=== PATIENT | female | born 1985 | race American Indian/Alaskan Native ===

== ENCOUNTER 2017-02-09 19:07 | Emergency (ER) | payer OTHER ==
[2017-02-09 19:41] VITALS: RESP 16; TEMP 98
--- NOTE | 2017-02-09 19:44 | C.PDOC ---
History Of Present Illness 31 year old female complains of low back pain for 2 months. Pain has gradually been worsening is localized to right lower back and occasionally radiates down the entire leg. She has been seen by PMD and pain management with normal xrays. Today patient had an MRI and is awaiting the results. She states she recently started taking Ultram for the pain but today pain still persistent. She also takes Flexeril and gabapentin. She admits to heavy lifting at work but has been on light duty for the past 2 weeks. Denies any dysuria, numbness, weakness, incontinence. Time Seen by Provider: 02/09/17 19:42 Chief Complaint (Nursing): Lower Extremity Problem/Injury History Per: Patient History/Exam Limitations: no limitations Onset/Duration Of Symptoms: Days (4) Current Symptoms Are (Timing): Still Present Quality Of Discomfort: "Pain" Previous Symptoms: Back Pain Associated Symptoms: denies: Incontinence, New Weakness, New Numbness Additional History Per: Patient Past Medical History Reviewed: Historical Data, Nursing Documentation, Vital Signs Vital Signs: Last Vital Signs Temp 98 F 02/09/17 19:38 Pulse 77 02/09/17 20:55 Resp 16 02/09/17 20:55 BP 134/84 02/09/17 20:55 Pulse Ox 99 02/09/17 21:32 - Medical History PMH: No Chronic Diseases Surgical History: No Surg Hx Family History: States: Unknown Family Hx - Social History Hx Alcohol Use: No Hx Substance Use: No - Immunization History Hx Tetanus Toxoid Vaccination: No Hx Influenza Vaccination: No Hx Pneumococcal Vaccination: No Review Of Systems Genitourinary: Negative for: Dysuria, Incontinence Musculoskeletal: Positive for: Back Pain (right lower ), Leg Pain Neurological: Negative for: Weakness, Numbness Physical Exam - Physical Exam Appears: Non-toxic, Other (uncomfortable ) Skin: Normal Color, Warm, Dry Head: Atraumatic, Normacephalic Eye(s): bilateral: Normal Inspection Oral Mucosa: Moist Neck: Supple Chest: Symmetrical Cardiovascular: Rhythm Regular, No Murmur Respiratory: Normal Breath Sounds, No Wheezing Back: Normal Inspection (no rash, swelling or bulging), No Vertebral Tenderness , Paraspinal Tenderness (lumbar), Straight Leg Raising (+45 degrees) Extremity: Normal ROM, No Tenderness, No Pedal Edema, Capillary Refill (less than 2 seconds ), No Deformity, No Swelling Neurological/Psych: Oriented x3, Normal Speech Gait: Steady ED Course And Treatment O2 Sat by Pulse Oximetry: 99 (on RA) Pulse Ox Interpretation: Normal Medical Decision Making Medical Decision Making: Impression: Sciatica NJRx Reviewed: 01/26/17 Taramadol 50mg #60 12/20/16 Diazepam 5 mg #5 Plan: * Toradol * Valium * Lidoderm Re-Eval: On reassessment, patient is resting comfortably, showing no signs of distress, and reports an improvement in her symptoms. Patient is ambulatory in the ED without distress and is stable for discharge. Patient is advised to f/u with PMD within 1-2 days for further evaluation. Disposition Counseled Patient/Family Regarding: Diagnosis, Need For Followup, Rx Given - Disposition Referrals: Afua Hall MD [Medical Doctor] - Disposition: HOME/ ROUTINE Disposition Time: 20:46 Condition: IMPROVED Additional Instructions: Follow up with your primary medical doctor or clinic in 2-5 days for further evaluation. Take medications as prescribed. Return to the emergency department at any time if symptoms persist or worsen. 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 - Scribe Statement The provider has reviewed the documentation as recorded by the Scribe (Maria Elena Poon) All medical record entries made by the Scribe were at my direction and personally dictated by me. I have reviewed the chart and agree that the record accurately reflects my personal performance of the history, physical exam, medical decision making, and the department course for this patient. I have also personally directed, reviewed, and agree with the discharge instructions and disposition.
[2017-02-09] MEDS ORDERED: Lidocaine 5% Patch TD STA (19:51)
[2017-02-09] MEDS ORDERED: Lidocaine 5% Patch TD ONE (19:58)
[2017-02-09 20:56] VITALS: BP 134/84; PULSE 77
[2017-02-09 21:08] VITALS: O2SAT 99
== END 2017-02-09 20:55 | disposition home or self-care (01) ==
LOC: C.ER 19:07
DX: M54.41 Lumbago with sciatica, right side (principal)
CPT/HCPCS: 96372; 99283; J1885